=== PATIENT | female | born 1980 | race Caucasian/White ===

== ENCOUNTER 2020-01-30 00:23 | Emergency (ER) | payer OTHER ==
[2020-01-30] MEDS ORDERED: DIAZEPAM 5 MG TABLET ONE (00:58)
[2020-01-30] MEDS ORDERED: HYDROCODONE/APAP 10/325 TAB ONE (00:58)
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
[2020-01-30] MEDS ORDERED: CIPROFLOXACIN HCL 500 MG TAB ONE (02:03)
[2020-01-30 02:24] LABS: Urine Blood 1+ (NEG); Urine Glucose NEGATIVE (NEG); Urine Protein NEGATIVE (NEG)
[2020-01-30] MEDS ORDERED: KETOROLAC 30 MG/ML INJ ONE (04:28)
[2020-01-30] MEDS ORDERED: dexAMETHasone 4 MG TAB ONE (05:14)
[2020-01-30 05:27] VITALS: TEMP 98.2
[2020-01-30 05:35] VITALS: BP 112/62; O2SAT 98
--- NOTE | 2020-01-30 11:58 | RAD REPORT ---
EXAM DESCRIPTION: RAD - Shoulder Right 2 View - 01/30/2020 1:02 am CLINICAL HISTORY: Right shoulder pain FINDINGS: No fracture or dislocation is seen.
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
--- OUTSIDE RECORDS SUMMARY | 2020-02-03 22:14 | XMS REPORT | Clinical Summary ---
:1980 Author Organization [facility] Address [address] [place] [id number] Care Team Providers Name Role Phone Asked, No Pcp Primary Care Provider Unavailable Allergies Active Allergy Reactions Severity Noted Date Comments No Known Drug Allergies 04/04/2017 Medications No known medications Active Problems No known active problems Surgical History Surgery Date Site/Laterality Comments ABDOMINAL SURGERY 4 cyst removal s and hysterectomy APPENDECTOMY 04/29/1998 - 04/28/1999 ORTHOPEDIC SURGERY 2 right knee and 1 left knee Medical History Medical History Date Comments Allergic 1990 Food Asthma 1986 Headache Seizures (HCC) Family History Medical History Relation Name Comments Hearing loss Father Michael Harris Cancer Maternal Grandfather Perry Harris Skin Heart disease Mother Lynda Harris Hypertension Mother Lynda Harris Relation Name Status Comments Father Michael Caryn Maternal Grandfather Perry Harris Mother Lynda Harris Social History Tobacco Use Types Packs/Day Years Used Date Current Every Day Smoker Cigarettes 0.5 5 Smokeless Tobacco: Never Used Alcohol Use Drinks/Week oz/Week Comments Yes 1 Standard drinks or equivalent On special occasion Sex Assigned at Date Recorded Not on file Last Filed Vital Signs Not on file Plan of Treatment Health Maintenance Due Date Last Done Comments CERVICAL CANCER SCREENING 2001 INFLUENZA VACCINE 11/28/2019 Results Not on fileafter 02/02/2019 Trey Hdz (Home) [place] [id number] Advance Directives For more information, please contact: [phone] 

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
--- OUTSIDE RECORDS SUMMARY | 2020-02-03 22:15 | XMS REPORT | Summary of Care ---
:1980 Author Organization [facility] Address [address] [place] [id number] Care Team Providers Name Role Phone Unavailable Primary Care Provider Unavailable Reason for Visit Reason Comments Exposure covid 19 LAB Encounter Details Date Type Department Care Team Description 11/09/2019 Laboratory Only [facility] Family Gopi Wade, COMFORT FILLER [address] [place] [address] Suspected 2018 [facility], Adc Fam Pob I Coronavirus [address] [facility] Infection ([address] Dx) [place] [address] Allergies Active Allergy Reactions Severity Noted Date Comments Naproxen Hives Medium 05/26/2018 documented as of this encounter (statuses as of 11/09/2019) Medications Medication Sig Dispensed Refills Start Date End Date Status meloxicam 7.5 mg Take 1 tablet by 30 tablet 0 05/26/2018 Active tabletIndications: mouth daily. Patellofemoral arthralgia of both knees documented as of this encounter (statuses as of 11/09/2019) Active Problems Not on filedocumented as of this encounter (statuses as of 11/09/2019) Social History Tobacco Use Types Packs/Day Years Used Date Current Every Day Smoker Smokeless Tobacco: Never Used Alcohol Use Drinks/Week oz/Week Comments No Sex Assigned at Date Recorded Not on file Job Start Date Occupation Industry Not on file Not on file Not on file Travel History Travel Start Travel End No recent travel history available. COVID-19 Exposure Response Date Recorded In the last month, have you been in contact with Yes 11/09/2019 7:45 AM CDT someone who was confirmed or suspected to have Coronavirus / COVID-19? documented as of this encounter Last Filed Vital Signs Not on filedocumented in this encounter Plan of Treatment Name Type Priority Associated Diagnoses Order S marta COVID-19 (PCR MOLECULAR LAB Routine Suspected 2019 No tiara Ordered: 11/09/2019 TESTING) Coronavirus Infection Health Maintenance Due Date Last Done Comments VARICELLA VACCINES (1 of 2 - 1981 2-dose childhood series) DTaP,Tdap,and Td Vaccines (1 - 08/23/1991 Tdap) Depression Screening 1992 PAP SMEAR 2001 INFLUENZA VACCINE (#1) 2019 PNEUMOCOCCAL 0-64 YEARS COMBINED Aged Out No longer eligible based on SERIES patient's age to complete this topic documented as of this encounter Results Not on filedocumented in this encounter Visit Diagnoses Diagnosis Suspected 2018 Novel Coronavirus Infecti on - Primary documented in this encounter Insurance Payer Benefit Plan / Subscriber ID Effective Dates Phone Addre ss Type Group [facility] [id number] 2018-Presen PPO/POS PPO/POS t documented as of this encounter
== END 2020-01-30 05:13 | disposition home or self-care (01) ==
LOC: ER 00:23
DX: S46.011A Strain of muscle(s) and tendon(s) of the rotator cuff of right shoulder, initial encounter (principal); S29.012A Strain of muscle and tendon of back wall of thorax, initial encounter; N39.0 Urinary tract infection, site not specified; V89.2XXA Person injured in unspecified motor-vehicle accident, traffic, initial encounter; Z88.6 Allergy status to analgesic agent; F17.210 Nicotine dependence, cigarettes, uncomplicated
CPT/HCPCS: 87088; 87086; 81003; 72125; 72128; 73030; 96372; 99284; J8540